=== PATIENT | female | born 1965 | race Caucasian/White ===

== ENCOUNTER → 2019-08-28 18:55 | Outpatient (CLI) | payer OTHER, SELFPAY ==
--- NOTE | 2019-08-28 | CYSPIN_PTH ---
PATIENT: JOAN AMBRIZ LOC: [facility] U#:[id number] AGE/SX: 60/F ROOM: RE08/28/[address]: Dr. Catie Maya MD : 1965 BED: DIS: SPEC #: [id number] RECD: 08/29/19 09:59 STATUS: NIA ADRIANA #: [id number] JONNY: 08/28/19 00:[address]: Catie Maya DEPT: CYTOLOGY RECD BY: Norman Vital ENTERED: 08/29/19 09:59 SP TYPE: CYSPIN FL OT DR: JHON Johnson Tissues: Urine Procedures: Pap Stain (control) Special Stain Group II Cytospin Fluid HEADER OPERATION: Not noted PRE-OP DIAGNOSIS: Gross hematuria TISSUE SUBMITTED: Urine for cytology DIAGNOSIS CYTOLOGY Urine for cytology (cytospin): Negative for malignant cells. Organisms consistent with bacteria are also noted. SJ:fam 08/29/19 CYTOLOGY STUDY Slides are reviewed. CYTOLOGY GROSS Received is 5 ml of clear yellow fluid labeled with the patient's name and and designated per the requisition as urine. Submitted for cytology preparation. / fam 08/29/19 TC:5 CPT: 98933
[2019-08-28 18:56] LABS: Cytology, Body Fluid / CSF SEE PATHOLOGY REPORT
== END ==
PROVIDERS: PCP Physician Assistant; Referring Provider Urology; Visit Provider Urology
DX: R31.0 Gross hematuria (principal)
CPT/HCPCS: 88108; 88313

== ENCOUNTER → 2019-09-03 | Outpatient (CLI) | payer OTHER, SELFPAY ==
[2019-09-03 10:13] VITALS: BMI 22.6
--- NOTE | 2019-09-03 10:45 | EMB_PTH ---
PATIENT: JOAN AMBRIZ [facility] U#:[id number] AGE/SX: 54/F ROOM: RE09/03/[address]: YOGESH Almonte : 1965 BED: DIS: 09/03/2019 SPEC #: [id number] RECD: 09/03/19 16:44 STATUS: NIA ADRIANA #: [id number] JONNY: 09/03/19 10:[address]: Susanna Fregoso NP DEPT: SURGICAL PATHOLOGY RECD BY: Norman Vital ENTERED: 09/04/19 07:00 SP TYPE: ENDOM BX/C ANA MARIA DR: JHON Johnson Tissues: Endometrium, NOS Procedures: Surgery Specimen Level IV HEADER OPERATION: Endometrial biopsy PRE-OP DIAGNOSIS: Abnormal uterine bleeding TISSUE SUBMITTED: Endometrial lining MICROSCOPIC DIAGNOSIS Endometrial biopsy: Superficial fragments of benign endometrial tissue and mucous. Fragments of benign endocervical epithelium. See comment. PATRICE:fam 09/05/19 COMMENT Endometrial glands are not identified for further evaluation. The findings may represent atrophic endometrium. Correlation with clinical findings and appropriate follow up are necessary. MICROSCOPIC DESCRIPTION Slides are reviewed. GROSS DESCRIPTION Received is one container labeled with the patient's name and not further designated. The specimen consists of multiple minute fragments of mera tissue that in aggregate measure 1 x 0.5 x <0.1 cm. The specimen is totally submitted in one cassette. / AM:fam 09/04/19 TC:4 CPT: 86364
[2019-09-09 16:11] LABS: HPV APTIMA, High Risk Positive (Negative)
== END | disposition home or self-care (01) ==
LOC: LABSPEC 16:53
PROVIDERS: PCP Physician Assistant; Referring Provider Nurse Practitioner Women's Health; Visit Provider Nurse Practitioner Women's Health
DX: Z12.4 Encounter for screening for malignant neoplasm of cervix (principal)
CPT/HCPCS: 87624; 88175; 88305; G0145

== ENCOUNTER → 2019-09-03 | Outpatient (CLI) | payer OTHER, SELFPAY ==
[2019-09-03 10:13] VITALS: BMI 22.6
== END | disposition home or self-care (01) ==
LOC: LABSPEC 09-04 07:29
PROVIDERS: PCP Physician Assistant; Referring Provider Nurse Practitioner Women's Health; Visit Provider Nurse Practitioner Women's Health
DX: N93.9 Abnormal uterine and vaginal bleeding, unspecified (principal)

== ENCOUNTER → 2019-09-04 14:39 | Outpatient (CLI) | payer OTHER, SELFPAY ==
[2019-09-03 10:13] VITALS: BMI 22.6
--- NOTE | 2019-09-04 14:42 | US_ITS ---
STUDY: ULTRASOUND TRANSVAGINAL CLINICAL: Female, 54 years old. Postmenopausal bleeding. TECHNIQUE: Transvaginal COMPARISON: None. FINDINGS: Normal uterine size measuring 5.7 x 3.9 x 2.6 cm in maximal craniocaudal dimension. There are no myometrial masses. Normal endometrial thickness measuring 2.2 mm. There are no endometrial masses. There is a small amount of fluid in the endometrial cavity. Normal uterine cervix. Ovaries are not visualized. There is no free fluid in the pelvis. Polycystic ovary disease: No. US/Transvaginal Non- IMPRESSION: Trace amount of fluid in the endometrial cavity, otherwise negative exam. Electronically Signed: Tray Adamson MD at 16:09 EDT , Service support ,
== END ==
PROVIDERS: PCP Physician Assistant; Referring Provider Urology; Visit Provider Urology
DX: N95.0 Postmenopausal bleeding (principal)
CPT/HCPCS: 76830

== ENCOUNTER → 2023-12-13 | Outpatient (CLI) | payer OTHER, SELFPAY ==
[2023-12-17 14:08] LABS: HPV APTIMA, High Risk Positive (Negative)
== END | disposition home or self-care (01) ==
LOC: LABSPEC 12:15
PROVIDERS: PCP Physician Assistant; Referring Provider Nurse Practitioner Family; Visit Provider Nurse Practitioner Family
DX: R87.610 Atypical squamous cells of undetermined significance on cytologic smear of cervix (ASC-US) (principal); Z12.4 Encounter for screening for malignant neoplasm of cervix
CPT/HCPCS: 87624; 88175; G0145

== ENCOUNTER → 2023-12-28 | Outpatient (CLI) | payer OTHER, SELFPAY ==
--- NOTE | 2023-12-28 14:10 | BI_ITS ---
MAMMOGRAPHY - BILATERAL SCREENING REASON FOR EXAM: Female, 58 years old. Routine annual screening examination. PERTINENT HISTORY: Non-contributory. Remote right excisional breast biopsy. TECHNIQUE: Digital bilateral breast re (3D mammographic acquisition) in the CC and MLO projections. 2-D mediolateral oblique (MLO) and craniocaudad (CC) views of both breasts were obtained. CAD: Full Field Digital Mammography with Computer Added Detection was performed. COMPARISON: None. Baseline examination. FINDINGS: Breast Composition: The breasts are extremely dense, which lowers the sensitivity of mammography. There are no dominant masses or suspicious calcifications. No other significant abnormalities are identified. BI/SCRN MAMM (CAD)W/RE BILAT IMPRESSION: Negative screening mammogram. Yearly followup mammogram recommended. (A) ASSESSMENT CATEGORY: BIRADS Category 1: Negative. A letter regarding these results will be sent to the patient by the facility within 30 days. Approximately 10% of breast cancers are not detected by mammography. A normal mammogram should not delay biopsy of a clinically suspicious abnormality. [id number] Electronically Signed: Ady Byers MD at 11:02 EDT ,
--- NOTE | 2023-12-28 14:35 | US_ITS ---
STUDY: THYROID ULTRASOUND REASON FOR EXAM: Female, 58 years old. Lump Right side TECHNIQUE: Ultrasound evaluation of the thyroid was performed with real-time and static ayala-scale imaging. COMPARISON: None. FINDINGS: RIGHT LOBE: The right lobe of the thyroid gland measures 4.9 x 1.5 x 1.6 cm. There is a homogeneous echotexture. Nodule 1:7 x 5 x 5 mm mixed cystic and solid isoechoic water than tall ill-defined margin nodule with no echogenic foci (TR/TE) in the lateral right lobe consistent with an adenoma. LEFT LOBE: The left lobe of the thyroid gland measures 4.1 x 1.7 x 1.1 cm. There is a homogeneous echotexture. Nodule 2:14 x 11 x 7 mm solid isoechoic water than tall ill-defined margin nodule with no echogenic foci (TR 3) in the anterior left lobe consistent with an adenoma. ISTHMUS: The isthmus measures 2 mm thick. . The regional lymph nodes are normal. US/Thyroid IMPRESSION: Multinodular thyroid gland. Electronically Signed: Supa García MD at 15:08 EDT ,
== END | disposition home or self-care (01) ==
PROVIDERS: PCP Physician Assistant; Referring Provider Nurse Practitioner Family; Visit Provider Nurse Practitioner Family
DX: Z12.31 Encounter for screening mammogram for malignant neoplasm of breast (principal); E04.1 Nontoxic single thyroid nodule
CPT/HCPCS: 76536; 77063; 77067

== ENCOUNTER → 2024-02-04 | Outpatient (CLI) | payer OTHER, SELFPAY ==
--- NOTE | 2024-02-04 | CER_PTH ---
PATIENT: JOAN AMBRIZ LOC: [facility] U#:[id number] AGE/SX: 58/F ROOM: RE02/04/[address]: Dr. Autumn Ba MD : 1965 BED: DIS: 02/04/2024 SPEC #: [id number] RECD: 02/04/24 17:55 STATUS: NIA WRIGHT #: [id number] JONNY: 02/04/24 00:[address]: Autumn Ba DEPT: SURGICAL PATHOLOGY RECD BY: Savannah Weeks ENTERED: 02/05/24 07:15 SP TYPE: CERV OTHR DR: JHON Johnson Tissues: Uterine cervix, NOS Procedures: Surgery Specimen Level IV HEADER OPERATION: Colposcopy PRE-OP DIAGNOSIS: ASCUS + TISSUE SUBMITTED: 6o'clock biopsy MICROSCOPIC DIAGNOSIS Cervix, 6o'clock, biopsy: A fragment of ectocervical epithelium with focal minimal changes suspicious for HPV cytopathic effects. Chronic inflammation. See comment. PATRICE/ 02/06/2024 COMMENT Immunohistochemistry ([id number]) for surrogate HPV marker (p16) supports the above diagnosis. MICROSCOPIC DESCRIPTION Slides are reviewed. GROSS DESCRIPTION Received in fixative is one container labeled with the patient's name and designated 6o'clock. The specimen consists of one irregular fragment of light mera soft tissue that measure 0.6 x 0.2 x 0.1 cm. The specimen is totally submitted in one cassette. 02/05/2024 TC:5 CPT:39886
--- NOTE | 2024-02-04 | IMM_PTH ---
PATIENT: JOAN AMBRIZ LOC: [facility] U#:[id number] AGE/SX: 58/F ROOM: RE02/04/[address]: Dr. Autumn Ba MD : 1965 BED: DIS: 02/04/2024 SPEC #: [id number] RECD: 02/06/24 10:39 STATUS: NIA REQ #: [id number] JONNY: 02/04/24 00:[address]: Autumn Ba DEPT: IMMUNOHISTOCHEMISTRY RECD BY: Barak Delgado ENTERED: 02/06/24 10:40 SP TYPE: IMMUNO OTHR DR: JHON Johnson Tissues: Uterine cervix, NOS Procedures: p16 (initial) KI-67 (add) PHYSICIAN & INSTITUTION [place] [id number] SPECIMEN INFORMATION: Tissue Source: 6o'clock biopsy Clinical Info: ASCUS+ Specimen Number: [id number] CPT code: 40655,68559 METHODOLOGY: Deparaffinized sections of prefer/formalin-fixed tissue or PAP/DQ stained slides are incubated with monoclonal/polyclonal antibodies/oligonucleotide probes. Localization is made via biotin free immunoperoxidase method. Appropriate controls are performed and reacted as expected. Results on target cell population are indicated in the following table: RESULTS: ANTIBODY / CLONE RESULT P16 (E6H4) negative Ki-67 (30-9) positive, basal layer only These tests were developed and their performance characteristics determined by [facility]. They may not have been cleared or approved by the U.[place]. Food and Drug Administration. The FDA has determined that such clearance or approval is not necessary. The above immunohistochemical/dualISH markers are ordered and reviewed by the Pathologist. INTERPRETATION: Cervix, 6o'clock, biopsy: Focal minimal changes suspicious for HPV cytopathic effects. PATRICE/ 02/07/2024
[2024-02-04 17:10] LABS: T4 Free Direct 0.93 ng/dL (0.76-1.46); Thyroid Stim Hormone (TSH) 1.83 uIU/mL (0.358-3.74)
[2024-02-06 04:07] LABS: Thyroid Peroxidase AB < 9 IU/mL (0-34)
== END | disposition home or self-care (01) ==
LOC: LAB 15:51
PROVIDERS: PCP Physician Assistant; Referring Provider Obstetrics & Gynecology; Visit Provider Obstetrics & Gynecology
DX: E04.1 Nontoxic single thyroid nodule (principal); R85.610 Atypical squamous cells of undetermined significance on cytologic smear of anus (ASC-US)
CPT/HCPCS: 36415; 84439; 84443; 84481; 86376; 88305; 88341; 88342

== ENCOUNTER → 2024-03-21 | Outpatient (CLI) | payer OTHER, SELFPAY | END | disposition home or self-care (01) | PROVIDERS: PCP Physician Assistant; Referring Provider Advanced Practice Midwife; Visit Provider Advanced Practice Midwife | DX: N89.8 Other specified noninflammatory disorders of vagina (principal); R10.2 Pelvic and perineal pain | CPT/HCPCS: 87070; 87205 ==

== ENCOUNTER → 2024-07-01 | Outpatient (CLI) | payer OTHER, SELFPAY ==
--- NOTE | 2024-07-01 11:41 | US_ITS ---
INDICATION: re-evaluation EXAMINATION: Ultrasound US Thyroid (eg thyroid, parathyroid, parotid) TECHNIQUE: Rojas scale and color doppler imaging was performed of the thyroid gland. COMPARISON: Prior study dated: 12/28/2023 FINDINGS: RIGHT THYROID LOBE: 4.6 x 1.7 x 1.5 cm, volume 6 mL. Previously 4.9 x 1.5 x 1.6 cm. Parenchyma: The gland echotexture is homogenous. Thyroid vascularity is normal. LEFT THYROID LOBE: 4.5 x 1.8 x 1.3 cm, volume 5.6 mL. Previously 4.1 x 1.7 x 1.1 cm. Parenchyma: The gland echotexture is homogenous. Thyroid vascularity is normal. ISTHMUS: 0.2 cm in maximum AP dimension. Previously 0.2 cm. Estimated total number of nodules greater than equal to 1 cm: 1. [employer] nodules are described as follows: 1. Location: Right mid Size: 0.8 x 0.4 x 0.6 cm. Previously: 0.7 x 0.5 x 0.5 cm. Nodule characteristics: Composition: Mixed cystic and solid (1). Echogenicity: Isoechoic (1). Shape: Wider than tall (0). Margins: Smooth (0). Echogenic Foci: None (0). ACR TI-RADS total points: 2. Previous 2. ACR TI-RADS category: 2. Previous 2 2. Location: Left mid Size: 1.3 x 1.1 x 0.8 cm. Previously: 1.4 x 1.1 x 0.7 cm. Nodule characteristics: Composition: Solid or almost completely solid (2). Echogenicity: Isoechoic (1). Shape: Wider than tall (0). Margins: Smooth (0). Echogenic Foci: None (0). ACR TI-RADS total points: 3. Previous 3. ACR TI-RADS category: 3. Previous 3 LYMPH NODES: No lymphadenopathy is seen in the tissue surrounding the thyroid gland. US/Thyroid IMPRESSION: No significant change in appearance of bilateral thyroid nodules. Based on size and appearance, no specific follow-up is recommended. ACR TI-RADS RECOMMENDATION REFERENCE: Ultrasound-guided fine-needle aspiration, follow-up ultrasound, no further follow-up. *TR 1 (0 points) and TR 2 (2 points): No FNA or follow-up. *TR 3 (3 points): FNA if more than or equal to 2.5 cm in maximum dimension. Follow-up ultrasound in 1, 3, and 5 years if 1.5 to 2.4 cm in maximum dimension. *TR 4 (4-6 points): FNA if more than or equal to 1.5 cm in maximum dimension. Follow-up ultrasound in 1, 2, 3, and 5 years if 1 to 1.4 cm in maximum dimension. *TR 5 (more than or equal to 7 points): FNA if more than or equal to 1 cm in maximum dimension. Follow-up ultrasound every year for 5 years if 0.5 to 0.9 cm in maximum dimension. *TR 3, TR 4, or TR 5 nodules that are below the size threshold for follow-up receive no follow-up. Electronically Signed: Nakul Hamilton MD at 23:56 EST ,
== END | disposition home or self-care (01) ==
LOC: US 11:39
PROVIDERS: PCP Physician Assistant; Referring Provider Nurse Practitioner Family; Visit Provider Nurse Practitioner Family
DX: E04.1 Nontoxic single thyroid nodule (principal)
CPT/HCPCS: 76536

== ENCOUNTER → 2025-03-16 | Outpatient (CLI) | payer OTHER, SELFPAY ==
--- NOTE | 2025-03-16 10:00 | BI_ITS ---
EXAM: SCRN MAMM (CAD)W/RE BILAT DATE: 03/16/2025 CLINICAL HISTORY: F, Age 59 y/o , SCREEN FOR BREAST CANCER No family history. History of prior right excisional breast biopsy. TECHNIQUE: Procedure Code: [id number] Modality: MG Procedure: SCRN MAMM (CAD)W/RE BILAT COMPARISON: Prior exam(s) dated December 28, 2023.. FINDINGS: TISSUE DENSITY: The breasts are extremely dense, which lowers the sensitivity of mammography. Bilateral Breast Mammographic Findings: No significant masses, calcifications or other abnormalities are identified. No suspicious masses, areas of developing architectural distortion, or suspicious calcifications. There has been no significant interval change. BI/SCRN MAMM (CAD)W/RE BILAT IMPRESSION: Stable bilateral screening mammogram. OVERALL FINAL ASSESSMENT BI-RADS 1: NEGATIVE. RECOMMENDATION: Routine annual follow-up in 1 Year Additional Recommendation none A letter with findings and recommendations will be mailed to the patient. Reading Location: [place] [address]
--- OUTSIDE RECORDS SUMMARY | 2025-03-16 10:17 | XMS RPT_ITS | CCD ---
Author Organization [facility] Care Team Providers Care Supervisor [employer] Name Role Phone ED, DR ROBERT Jackson Admitting Unavaila ble FABBY GUZMAN Consulting Unavailable ED, DR ROBERT Jackson Attending Unavaila ble ED, DR ROBERT Jackson Primary Care Unavaila ble PROVIDER, UNKNOWN Consulting Unavailable ED, DR ROBERT Jackson Primary Care Unavaila ble ED, DR ROBERT Jackson Admitting Unavaila ble GUZMAN, FABBY Hilliard Consulting Unavailable ED, DR ROBERT Jackson Attending Unavaila ble PROVIDER, UNKNOWN Consulting Unavailable Thomas GREENE, Fabby Hilliard Unavailable Thomas GREENE, Fabby Hilliard Unavailable Cleveland CABALLERO, Dr. Ballard Unavailable Zulma CABALLERO, Dr. Haddad Unavailable Jaden CABALLERO, Carina Jackson Unavailable Kenya Baker PA-C Unavailable Gil Villanueva PA-C Unavailable Eric PATEL, Ta Unavailable Unavailable Chidi PINTO, Alyx Unavailable [phone] Vidhya Jennings Unavailable Harinder BUCHANANN, Carina Guzmán Unavailable Unavailab evan Burgos LPN, Harmony Unavailable Unavailabl ana paula Brito WEAVING PROFESSOR, Poly Unavailable Unavailable Unavailable Unavailable Elsi Mcpherson Unavailable Unavailable Unavailable Unavailable Fabby Brock Referring Unavailable Suzanne Chairez Attending Unavailable Fabby Brock Primary Care Unavailable Suzanne Chairez Attending Unavailable Suzanne Chairez Referring Unavailable Fabby Brock Primary Care Unavailable Kanchan Francois Attending Unavailable Kanchan Francois Referring Unavailable Fabby Brock Primary Care Unavailable Autumn Ba Attending Unavailable Autumn Ba Referring Unavailable Fabby Brock Primary Care Unavailable Medications Current Medications Medication Drug Class(es) Dates Sig (Normalized) Sig (Original) Azithromycin (7 sources) Macrolide Antimicrobial Start: 06-05-2024 Zithromax Z-Ag 250 mg tablet ; 2 (two) Tablet today and then 1 tablet daily x 4 days for 0 days Quantity: 1 {Tablet} Refills: 0 Ordered: 05-Jun-2024 RAMONA Guzman Start: 05-Jun-2024 Start: 04-23-2017 End: 05-12-2017 Zithromax Z-Ag 250 MG Oral Tablet ; 2 (two) Tablet today and then 1 tablet daily x 4 days for 0 days Quantity: 1 {Package} Refills: 0 Ordered: 12-May-2017 RAMONA Baker Start: 23-Apr-2017 End: 12-May-2017 Status: Inactive Completed/Discontinued Medications Medication Drug Class(es) Dates Sig (Normalized) Sig (Original) [id number] 200 actuat albuterol 0.09 mg/actuat metered dose inhaler (7 sources) beta2-Adrenergic Agonist Start: 04-23-2017 End: 04-26-2018 take 2 puff(s) by inhalation every four to six hours as needed Ventolin HFA 108 (90 Base) MCG/ACT Inhalation Aerosol Solution ; 2 (two) puffs every 4-6 hours as needed for 0 days Quantity: 1 {Inhaler} Refills: 0 Ordered: 26-Apr-2018 AMANDA Burgos Start: 23-Apr-2017 End: 26-Apr-2018 Status: Inactive Comments: Medication taken as needed. Comment on above: Medication taken as needed. amoxicillin 500 mg oral capsule (7 sources) Penicillin-class Antibacterial Start: 08-23-2010 End: 09-02-2010 take 1 capsule by mouth three times daily AMOXICILLIN, 500MG (Oral Capsule) ; 1 Capsule three times daily for 10 days Quantity: 30 {Capsule} Refills: 0 Ordered: 23-Aug-2010 MD Carina Stanley Start: 23-Aug-2010 End: 02-Sep-2010 Status: Inactive Comments: fill if needed Comment on above: fill if needed amoxicillin 875 mg / clavulanate 125 mg oral tablet (7 sources) Penicillin-class Antibacterial Start: 04-26-2018 End: 05-06-2018 take 1 tablet by mouth twice daily at mealtime Augmentin 875-125 MG Oral Tablet ; 1 Tab two times daily for 10 days Quantity: 20 {Tablet} Refills: 0 Ordered: 26-Apr-2018 RAMONA Guzman Start: 26-Apr-2018 End: 06-May-2018 Status: Inactive Comments: Take with food Comment on above: Take with food sulfamethoxazole 800 mg / trimethoprim 160 mg oral tablet (7 sources) Dihydrofolate Reductase Inhibitor Antibacterial, Sulfonamide Antimicrobial Start: 08-18-2019 End: 08-23-2019 take 1 tablet by mouth twice daily Bactrim DS 800-160 MG Oral Tablet ; 1 (one) Tablet BID for 5 days Quantity: 10 {Tablet} Refills: 0 Ordered: 18-Aug-2019 RAMONA Guzman Start: 18-Aug-2019 End: 23-Aug-2019 Status: Inactive Problems Active Problems Problem Classification Problem Date Documented Date Episodic/Chronic Administrative/social admission (14 sources) Issue of repeat prescriptions 05-12-2017 Episodic Chronic obstructive pulmonary disease and bronchiectasis (20 sources) Bronchitis; Translations: [Bronchitis, not specified as acute or chronic] 03-14-2019 Episodic Disorders of lipid metabolism (20 sources) Hyperlipidemia; Translations: [Hyperlipidemia, unspecified] 09-18-2022 Chronic E Codes: Natural/environment (14 sources) Tick bite; Translations: [Bitten or stung by nonvenomous insect and other nonvenomous arthropods, initial encounter] 09-19-2022 Episodic Genitourinary symptoms and ill-defined conditions (20 sources) Urinary symptoms ; Translations: [Unspecified symptoms and signs involving the genitourinary system] 09-18-2022 Episodic Immunizations and screening for infectious disease (14 sources) Requires diphtheria, tetanus and pertussis vaccination; Translations: [Encounter for immunization] 08-13-2014 Episodic Menopausal disorders (14 sources) Perimenopausal state; Translations: [Menopausal and female climacteric states] 09-18-2022 Chronic Menstrual disorders (20 sources) Menometrorrhagia; Translations: [Excessive and frequent menstruation with irregular cycle] 09-18-2022 Chronic Nonmalignant breast conditions (7 sources) Pain of breast; Translations: [Mastodynia] 08-19-2012 Episodic Other lower respiratory disease (4 sources) Cough; Translations: [Cough] 06-05-2024 Episodic Other screening for suspected conditions (not mental disorders or infectious disease) (20 sources) Screening status; Translations: [Encounter for screening for malignant neoplasm of colon] Onset: 03-12-2025 03-14-2019 Episodic Other skin disorders (14 sources) Lesion of skin of face; Translations: [Disorder of the skin and subcutaneous tissue, unspecified] 03-14-2019 Episodic Other skin disorders (14 sources) Skin lesion; Translations: [Disorder of the skin and subcutaneous tissue, unspecified] 09-18-2022 Episodic Other upper respiratory infections (20 sources) Pharyngitis; Translations: [Acute pharyngitis, unspecified] 03-14-2019 Episodic Spondylosis; intervertebral disc disorders; other back problems (14 sources) Low back pain; Translations: [Lumbago] 04-15-2010 Episodic Sprains and strains (7 sources) Sprains and strains of other specified sites of shoulder and upper arm 08-19-2012 Episodic Thyroid disorders (1 source) Nontoxic single thyroid nodule; Translations: [Nontoxic single thyroid nodule] Onset: 07-25-2024 Chronic Unclassified (7 sources) deliveries 08-18-2019 Comment on above: 1. for breech Unclassified (7 sources) Number of Children 08-18-2019 Comment on above: 1. Unclassified (7 sources) Number of Pregnancies 08-18-2019 Comment on above: 1. Unclassified (7 sources) Well Adult, female - The patient feels well with minor complaints (has a burning sensation over her left ovary, intermittent, at times is a side ache; may relate to her menstrual cycle), has good energy level and is sleeping well. The first day of the last menstrual period was : (07/07/14). The patient has a balanced diet and takes no supplemental vitamins & iron. The patient exercises none (nothing right now, is much more active in the summer months). 08-13-2014 Past or Other Problems Problem Classification Problem Date Documented Date Episodic/Chronic Abdominal pain (15 sources) Right lower quadrant pain; Translations: [Right lower quadrant pain] Onset: 03-21-2024 08-18-2019 Episodic Other female genital disorders (1 source) Other specified noninflammatory disorders of vagina; Translations: [Other specified noninflammatory disorders of vagina] Onset: 04-14-2024 Episodic Unclassified (7 sources) tick bite - Acquired tick bite Sunday while picking up sticks in [place] around lunch. Noticed tick at 10pm during shower on lower left side of stomach. Area red. 09-19-2022 Unclassified (7 sources) Skin lesion - The skin lesion appeared gradually and has been occurring for 10 months. It has been unchanging in size. The lesion is characterized as raised above the skin. The lesion is located on the neck. Note for "Skin lesion": Has been itchy in the past several months. 08-22-2021 Unclassified (7 sources) UTI - Symptoms include dysuria, urinary frequency, urinary urgency, hematuria and back pain. The pain is located in the back (just a little but she did work outside yesterday). There is no radiation. Onset was sudden hour(s) ago (this am). The symptoms occur constantly. The patient describes this as moderate in severity and worsening. Associated symptoms do not include fever, chills, nausea or vomiting. Note for "UTI": No vaginal bleeding x >1 year. 08-18-2019 Unclassified (7 sources) Abdominal pain - The onset of the abdominal pain has been gradual and has been occurring in a persistent pattern for 5 days. The course has been constant. The pain is described as a moderate cramping. The pain is located in the right lower quadrant and does not radiate. The symptoms are aggravated by coughing, standing, walking and motion (touching hurts it.). There has been no associated heartburn. Note for "Abdominal pain": Constant pain - less severe if just sitting. Worse with movement. No period- has been over a year; has been a while since last pap, normal BM, no dysuria. Did have some urinary frequency on Sunday morning but none since. No nausea or fever. Has gallbladder and appendix. Normal appetite.No lump.No trigger prior to episode - such as heavy lifting, moving, etc.No treatment attempted. 07-23-2019 Unclassified (7 sources) Sore throat - The onset of the sore throat has been acute and has been occurring in a persistent pattern for 3 days. The sore throat is described as mild. Symptoms include sore throat (a couple of days ago but not now), but do not include fever, headache, runny nose, nasal congestion, cough or ear pain. There are no relieving factors. Note for "Sore throat": Pt was at the dentist office 2 days ago and was alerted that her throat seemed unusually red and has small white spots. Her throat does not hurt at this time. Thinks there may be some new spots that have appeared since her appt. Doesn't use chewing tobacco and hasn't been around anyone who has been sick. 03-14-2019 Unclassified (7 sources) Cold Symptoms - Symptoms include runny nose and dry cough, but do not include nasal congestion, ear pain, ear fullness, sore throat, wheezing, fever, chills, general malaise, headache or facial pain. The onset was gradual 1 week(s) ago. The symptoms occur constantly. The patient describes this as moderate in severity and worsening. Current treatment includes non-prescription cold medication and mucinex. The patient has not been exposed to an individual with similar symptoms. Medical history includes seasonal allergies, but patient denies history of recurrent sinusitis, recurrent strep pharyngitis, asthma, tonsillectomy or recurrent ear infections. Note for Upper respiratory infection": Same thing one year ago that progressed quickly and she is going out of state in 2 weeks. 04-26-2018 Unclassified (7 sources) Cough - The onset of the cough has been gradual and has been occurring in a persistent pattern for 3 months. The course has been constant. The cough is characterized as dry (chest feels heavy and she feels like there is stuff in there but can't get it out). The cough occurs all the time. There is no fever, headache, runny nose or sore throat. Note for "Cough": Has been taking robutussin and jasmin seltzer without improvement.Initially had cold symptoms but those improved - cough/chest symptoms persisted. 04-23-2017 Unclassified (7 sources) breast pain - Patient notes for the last couple months her right breast has been sore/tender. It seems to be worse around her menstrual cycle. No palpable lump, no nipple drainage, no reddness or swelling. She has hx of having lump removed but was benign (right breast, 1984). Unsure if any family hx of breast cancer. LMP last week. Tender to touch today but no other current pain. Has some upper back discomfort (?tension). Does not drink much caffeine (occ iced tea). No new bras; no longer wears underwires (got rid of them a few months ago when had similar sx). 08-19-2012 Unclassified (7 sources) Well adult female - The patient feels well with minor complaints. The first day of the last menstrual period was : (08/25-08/31). 09-09-2010 Unclassified (7 sources) Cold Symptoms - Symptoms include nasal congestion, non-purulent sputum, sore throat, general malaise, headache and facial pain, but do not include productive cough or fever. The onset was sudden 5 day(s) ago. The patient describes this as worsening. Current treatment includes non-prescription cold medication. The patient has been exposed to an individual with an upper respiratory infection. Note for "Cold Symptoms": plans to go to [facility] later in week and wants to feel better before she leaves 08-23-2010 Unclassified (7 sources) Back pain - The onset of the pain has been variable and has been occurring in a persistent pattern for months. The course has been constant. The pain is characterized as a dull ache and shooting (Into bilateral legs causing an achiness, no muscle spasm). The pain is located in the lower back (variable between sides day to day) and sacral area and radiates to the left groin (and hips intermittently). There are no precipitating factors. The symptoms are aggravated by menses and are relieved by rest and stretching (changing positions helps, has also tried ibuprofen). 04-16-2010 Unclassified (2 sources) Cold Symptoms - Symptoms include hoarseness and dry cough (feels heavy in chest unable to cough anything up), but do not include sneezing, nasal congestion, runny nose, non-purulent sputum, purulent discharge, ear pain, ear fullness, sore throat, scratchy throat, productive cough, wheezing, fever, chills, general malaise, headache or facial pain. The onset was gradual (pt states had a cold end of March was better but still has cough) 1 month(s) ago. The symptoms occur intermittently. The patient describes this as moderate in severity and worsening (especially in morning). The patient is not currently being treated for this problem. Risk factors do not include smoking. Patient denies history of seasonal allergies or asthma. Note for Upper respiratory infection": Chest congestion. 06-05-2024 Results Test Name Value Interpretation Reference Range Facility Thyroidon 07-01-2024 Thyroid [facility] Services [address] [place] [address] Thyroid MR#: [id number] Acct: [id number] Name: JOAN AMBRIZ Rep #: [id number] : 1965 F 59 From: Nakul martinez MD PCP: JHON Johnson Status: REG CLI Study: Thyroid Date of Exam: 07/01/24 Exam# [id number] Ordering Dr: Kanchan Francois LACING CUTTER-C [id number] INDICATION: re-evaluation EXAMINATION: Ultrasound US Thyroid (eg thyroid, parathyroid, parotid) TECHNIQUE: Rojas scale and color doppler imaging was performed of the thyroid gland. COMPARISON: Prior study dated: 12/28/2023 ____ FINDINGS: RIGHT THYROID LOBE: 4.6 x 1.7 x 1.5 cm, volume 6 mL. Previously 4.9 x 1.5 x 1.6 cm. Parenchyma: The gland echotexture is homogenous. Thyroid vascularity is normal. LEFT THYROID LOBE: 4.5 x 1.8 x 1.3 cm, volume 5.6 mL. Previously 4.1 x 1.7 x 1.1 cm. Parenchyma: The gland echotexture is homogenous. Thyroid vascularity is normal. ISTHMUS: 0.2 cm in maximum AP dimension. Previously 0.2 cm. Estimated total number of nodules greater than equal to 1 cm: 1. Supervisor Plate Pasting nodules are described as follows: 1. Location: Right mid Size: 0.8 x 0.4 x 0.6 cm. Previously: 0.7 x 0.5 x 0.5 cm. Nodule characteristics: Composition: Mixed cystic and solid (1). Echogenicity: Isoechoic (1). Shape: Wider than tall (0). Margins: Smooth (0). Echogenic Foci: None (0). ACR TI-RADS total points: 2. Previous 2. ACR TI-RADS category: 2. Previous 2 2. Location: Left mid Size: 1.3 x 1.1 x 0.8 cm. Previously: 1.4 x 1.1 x 0.7 cm. Nodule characteristics: Composition: Solid or almost completely solid (2). Echogenicity: Isoechoic (1). Shape: Wider than tall (0). Margins: Smooth (0). Echogenic Foci: None (0). ACR TI-RADS total points: 3. Previous 3. ACR TI-RADS category: 3. Previous 3 LYMPH NODES: No lymphadenopathy is seen in the tissue surrounding the thyroid gland. US/Thyroid IMPRESSION: No significant change in appearance of bilateral thyroid nodules. Based on size and appearance, no specific follow-up is recommended. ACR TI-RADS RECOMMENDATION REFERENCE: Ultrasound-guided fine-needle aspiration, follow-up ultrasound, no further follow-up. *TR 1 (0 points) and TR 2 (2 points): No FNA or follow-up. *TR 3 (3 points): FNA if more than or equal to 2.5 cm in maximum dimension. Follow-up ultrasound in 1, 3, and 5 years if 1.5 to 2.4 cm in maximum dimension. *TR 4 (4-6 points): FNA if more than or equal to 1.5 cm in maximum dimension. Follow-up ultrasound in 1, 2, 3, and 5 years if 1 to 1.4 cm in maximum dimension. *TR 5 (more than or equal to 7 points): FNA if more than or equal to 1 cm in maximum dimension. Follow-up ultrasound every year for 5 years if 0.5 to 0.9 cm in maximum dimension. *TR 3, TR 4, or TR 5 nodules that are below the size threshold for follow-up receive no follow-up. Electronically Signed: Nakul Hamilton MD at 23:56 EST , CC: YOGESH Francois; JHON Johnson Nicker And Breaker: Signed Normal [facility] Genital Culture Comprehensiv aimee 03-25-2024 VAC Reason for Exam: vaginal discharge Normal vaginal laila isolated. No yeast, Gardnerella, Neisseria or beta-hemolytic Streptococcus isolated. Normal [facility] Comment on above: Performed By: #### M 100.1999, M100.3200 #### [facility] [address] [place], [address] Gram Stainon 03-22-2024 GS Reason for Exam: vaginal discharge Gram Stain 3+ Gram positive rods 1+ White Blood Cells No Gram negative diplococci Normal [facility] Comment on above: Performed By: #### M 100.1999, M100.3200 #### [facility] [address] [place], [place], [id number] [employer] Office Visit Reporton 03-21-2024 [employer] Office Visit Report [facility] [address], [address] [place] [address] OFFICE VISIT Date of Service: 03/21/24 MR#: [id number] Acct: [id number] Name: JOAN AMBRIZ Rep #: [id number] : 1965 Provider: BLAISE Floyd ams Age/Sex: 58/F [place] [facility] [place]: [place] Intake Vital Signs 02/04/24 15:27 03/21/24 15:14 03/21/24 15:20 Height 5 ft 8 in 5 ft 8 in 5 ft 8 in Weight: 147 lb BMI 22.3 BP 132/69 H Intake Visit Reasons: discharge, back pain following colposcopy Associate Veterinarian Required: No Is patient in pain?: Yes (back pain on and off) Allergies No Known Allergies Allergy (Verified 03/21/24 15:20) Medications ???Medication ???Instructions ???Recorded ???Confirmed ???Type multivitamin 1 tab PO DAILY 12/13/23 03/21/24 History metronidazole 500 mg tablet 500 mg PO BID #14 tabs 03/21/24 03/21/24 Rx Patient : No : No PFSH Surgical History S/P breast lumpectomy deliv due to previous difficult deliv, deliv, curr hospitaliz Family History Father Cancer Heart disease Mother Heart disease Social History number of children: 1 current occupational status: employed current occupation: [employer] Smoking Status: Former smoker alcohol intake: current alcohol intake frequency: a few times a week Alcohol type: wine substance use type: does not use frequency: 1-2 times per week seatbelt use: always do you feel safe at home: Yes additional social history: - [employer] ([employer]) HPI discharge, back pain following colposcopy Details: JOAN AMBRIZ is a 58 year old who presents for vaginal discharge and odor since colposcopy in jan. Has to wear panty liner for discharge and reports musty smell. Denies pain, irritation or itching. Denies UTI sx. History 1 Elective abortions Hx Para 1 Spontaneous abortions Hx # Term Pregnancies 1 Ectopic pregnancies Hx # Pregnancies Multiple births # of living children 1 Past Pregnancies Del. Date Name GA/Weeks Outcome Route Bth Weight Gen Labor Lgth Anesthesia Del Locatn Provider FOB Unknown Fiordaliza 1989 ROS Const Constitutional: Reports system reviewed and no additional complaints, except as documented Cardio Card: Reports system reviewed and no additional complaints, except as documented Resp Resp: Reports system reviewed and no additional complaints, except as documented GI GI: Reports system reviewed and no additional complaints, except as documented : Reports system reviewed and no additional complaints, except as documented; Denies difficulty voiding, dysuria or urinary frequency Skin Skin/Breast: Reports system reviewed and no additional complaints, except as documented Neuro Neuro: Reports system reviewed and no additional complaints, except as documented Psych Psych: Reports system reviewed and no additional complaints, except as documented Exam Const General: cooperative, healthy appearing, comfortable and no acute distress Resp Effort Inspection: normal respiratory effort, able to speak in complete sentences and symmetric chest movement GI Inspection: normal to inspection Palpation: soft External Female Exam: normal external appearance and normal appearance of the urethra Urethra: normal appearance of the urethra Speculum Exam - Vagina: normal appearance of the vagina and normal vaginal discharge Speculum Exam - Cervix: normal appearance of the cervix and nontender Bimanual Exam- Vagina Uterus: normal bimanual exam, normal palpation, uterine size normal, No tender and non-tender Bimanual Exam- Adnexa, other: normal Pelvic Support: normal Neuro General: patient alert, patient awake and patient oriented x3 Cognition: normal cognition Speech: speech normal Gait: normal gait Psych Appearance: grossly normal and well kempt Mental Status: mental status grossly normal Affect: normal affect Speech and Movement: speech and movement normal Attitude: cooperative Thought Process: normal Thought Content: normal Judgment: judgment good Coding Level of Care Code Off vis,est,level 3 Diagnoses Vaginal discharge N89.8 Assessment and Plan Assessment and Plan (1) Vaginal discharge: Status: Acute Plan: metronidazole sent Genital culture RTO prn/annual Orders: Orders Culture, Genital Comprehensive Today N89.8 - Other specified noninflammatory disorders of vagina Culture, Urine Today R10.2 - Pelvic and perineal pain Medications: New metronidazole 500 mg PO BID 14 tabs 0RF 03/21/24 1537 Date ____ (more content not included)... Normal [facility] - Chemistry and C hemistry - challengeon 08-18-2019 Bilirubin Ql (U) Negative Normal [facility] [employer] [employer], [employer]. Ketones Ql (U) Negative Normal [facility] [employer], [employer]. pH (U) 6.0 [pH] Normal [employer], [employer]. Specific gravity (U) [Rel density] 1.015 Normal [employer], [employer]. Urobilinogen Qn (U) 0.2 mg/dL Normal [employer], [employer].; [employer], [employer]. Laboratory - Hematology and Cell countson 08-18-2019 Hemoglobin Ql (U) large Abnormal [employer].; [employer], [employer]. Laboratory - Specimen inform ationon 08-18-2019 Appearance (U) clear Normal [employer]. Color (U) yellow Normal [facility] [employer]. Laboratory - Urinalysison Glucose Test strip (U) [Mass/Vol] Negative Normal [facility] [employer].; [employer]. Leukocyte esterase Test strip Ql (U) trace Normal [facility] [employer].; [employer]. Nitrite Ql (U) Negative Normal [facility] [employer]. Protein Ql (U) Negative Normal [facility].; [employer]. No Panel Informationon 08-18 CULTURE, URINE, ROUTINE SEE NOTE Normal [place] [employer].; [employer]. Laboratory - Chemistry and C hemistry - challengeon 07-23-2019 Bilirubin Ql (U) Negative Normal [facility] [employer]. Ketones Ql (U) Negative Normal [facility].; [employer]. pH (U) 7.0 [pH] Normal [place] [facility].; [employer]. Specific gravity (U) [Rel density] 1.015 Normal [place] [facility].; [employer]. Urobilinogen Qn (U) 0.2 mg/dL Normal [facility] [employer]. Laboratory - Hematology and Cell countson 07-23-2019 Hemoglobin Ql (U) Negative Normal [place] [facility].; [employer]. Laboratory - Specimen inform ationon 07-23-2019 Appearance (U) clear Normal [facility] [employer]. Color (U) yellow Normal [place] [employer].; [employer]. Laboratory - Urinalysison Glucose Test strip (U) [Mass/Vol] Negative Normal [place] [facility].; [employer], [employer]. Leukocyte esterase Test strip Ql (U) trace Normal [facility].; [employer], [employer]. Nitrite Ql (U) Negative Normal [facility].; [employer]. Protein Ql (U) Negative Normal [facility]; [facility] Laboratory - Microbiology an d Antimicrobial susceptibilityon 03-14-2019 S. pyogenes Ag EIA Ql (Throat) Negative Normal [facility]; [facility] No Panel Informationon 03-14 MONOSPOT TEST (IN HOUSE) Negative Normal [facility]; [facility] Laboratory - Cytologyon 07-26 Microscopic observation Cyto stain Nom (Cvx) Normal [facility]; [facility] Laboratory - Chemistry and C hemistry - challengeon 07-08-2014 Albumin [Mass/Vol] 4.7 g/dL Normal 3.6 - 5.1 g/dL [facility]; [facility], [facility] Albumin/Globulin [Mass ratio] 1.4 {ratio} Normal 1.0 - 2.5 [facility]; [facility] ALP [Catalytic activity/Vol] 60 U/L Normal 33 - 130 U/L [facility]; [facility], [facility]. ALT [Catalytic activity/Vol] 9 U/L Normal 6 - 29 U/L [facility]; [facility], [facility]. AST [Catalytic activity/Vol] 16 U/L Normal 10 - 35 U/L [facility], [facility] Bilirubin [Mass/Vol] 0.5 mg/dL Normal 0.2 - 1 .2 mg/dL [facility]; [facility], [facility]. Calcium [Mass/Vol] 9.6 mg/dL Normal 8.6 - 10. 4 mg/dL [facility].; [facility], [facility]. Chloride [Moles/Vol] 100 mmol/L Normal 98 - 11 0 mmol/L [facility]; [facility], [facility]. Cholesterol [Mass/Vol] 247 mg/dL Abnormal 125 - 200 mg/dL [facility]; [facility], [facility] Cholesterol in HDL [Mass/Vol] 75 mg/dL Normal [facility]; [facility], [facility] Cholesterol in LDL [Mass/Vol] 155 mg/dL Abnormal [facility].; [facility], [facility]. Cholesterol non HDL [Mass/Vol] 172 mg/dL Abnormal [facility].; [facility], [facility]. Cholesterol.total/Chol esterol in HDL [Mass ratio] 3.3 {ratio} Normal [facility].; [facility], [facility] CO2 [Moles/Vol] 26 mmol/L Normal 19 - 30 mmol/L [facility], [facility].; [facility], [facility]. Creatinine [Mass/Vol] 0.85 mg/dL Normal 0.50 - 1.05 mg/dL [facility], [facility].; [facility], [facility]. GFR/1.73 sq M.predicted among blacks MDRD (S/P/Bld) [Vol rate/Area] 93 {ML/MIN/1.73M2} Normal [facility], [facility].; [facility], [facility]. GFR/1.73 sq M.predicted MDRD (S/P/Bld) [Vol rate/Area] 80 {ML/MIN/1.73M2} Normal [facility], [facility].; [facility], [facility]. Globulin (S) [Mass/Vol] 3.2 g/dL Normal 1.9 - 3.7 g/dL [facility], [facility].; [facility], [facility]. Glucose [Mass/Vol] 92 mg/dL Normal 65 - 99 mg/dL [facility].; [facility], [facility]. Potassium [Moles/Vol] 4.7 mmol/L Normal 3.5 - 5.3 mmol/L [facility], [facility].; [facility], [facility]. Protein [Mass/Vol] 7.9 g/dL Normal 6.1 - 8.1 g/dL [facility], [facility].; [facility], [facility]. Sodium [Moles/Vol] 136 mmol/L Normal 135 - 146 mmol/L [facility], [facility].; [facility], Inc. Triglyceride [Mass/Vol] 85 mg/dL Normal [facility], [facility].; [facility], [facility]. Urea nitrogen [Mass/Vol] 17 mg/dL Normal 7 - 25 mg/dL [facility], [facility].; [facility], Inc. Urea nitrogen/Creatinine [Mass ratio] 19.9 mg/mg Normal 6 - 22 [facility].; [employer]. Laboratory - Chemistry and C hemistry - challengeon 09-14-2010 Cholesterol [Mass/Vol] 218 mg/dL Abnormal 0 - 200 mg/dL [facility], [facility].; [employer]. Cholesterol in HDL [Mass/Vol] 65 mg/dL Abnormal 40 - 60 mg/dL [facility], [facility].; [employer]. Cholesterol in LDL [Mass/Vol] 137 mg/dL Abnormal 0 - 100 mg/dL [facility], [facility].; [employer], [employer]. Cholesterol in VLDL [Mass/Vol] 16 mg/dL Normal [facility].; [employer]. Glucose [Mass/Vol] 93 mg/dL Normal 70 - 110 mg/dL [facility].; [employer]. Triglyceride [Mass/Vol] 80 mg/dL Normal 0 - 150 mg/dL [facility].; [employer]. Laboratory - Cytologyon 08-23 Microscopic observation Cyto stain Nom (Cvx) SEE NOTE Normal [facility].; [employer]. Vital Signs Date Time Vital Sign Value Performing Clinician Facility 06-05-2024 13:46-0500 Body height 172.72 cm [facility], [facility]; [employer]. 06-05-2024 13:46-0500 Body mass index (BMI) [Ratio] 22.9 kg/m2 [facility]; [employer], [employer]. 06-05-2024 13:46-0500 Body surface area Derived from formula 1.81 m2 [facility], [facility].; [employer]. 06-05-2024 13:46-0500 Body temperature 98.6 [degF] [facility].; [employer]. Comment on above: Method: Tympanic 06-05-2024 13:46-0500 Body weight 68.31 kg [facility].; [employer]. 06-05-2024 13:46-0500 Diastolic blood pressure 83 mm[Hg] [facility], [employer].; [employer]. Comment on above: Patient Position: Sitting; Cuff Location : Left Arm; Cuff Size: Standard 06-05-2024 13:46-0500 Heart rate 78 /min [facility] KoreyH[facility], [employer].; [employer]. Comment on above: Pattern: Regular 06-05-2024 13:46-0500 Inhaled oxygen concentration 21 % [facility].; [employer]. Comment on above: Room air 06-05-2024 13:46-0500 SaO2% (BldA) [Mass fraction] 96 % [facility].; [employer]. 06-05-2024 13:46-0500 Systolic blood pressure 127 mm[Hg] ElsiCarson [facility] Cancer CenterZipments.; [employer]. Comment on above: Patient Position: Sitting; Cuff Location : Left Arm; Cuff Size: Standard 09-19-2022 08:05-0400 Body temperature 98.7 [degF] Ta Reyes WEAVING PROFESSOR [facility], [employer].; [employer]. 09-19-2022 08:05-0400 Body weight 69.4 kg Ta Reyes LPN [place] [employer] [facility], [employer].; [employer]. 09-19-2022 08:05-0400 Diastolic blood pressure 80 mm[Hg] Ta Reyes LPN [facility], [employer].; [employer]. Comment on above: Patient Position: Sitting; Cuff Location : Left Arm; Cuff Size: Standard 09-19-2022 08:05-0400 Heart rate 78 /min Ta Reyes LPN [facility], [employer].; [employer]. Comment on above: Pattern: Regular 09-19-2022 08:05-0400 Systolic blood pressure 149 mm[Hg] Ta Reyes LPN [facility], [employer].; [employer]. Comment on above: Patient Position: Sitting; Cuff Location : Left Arm; Cuff Size: Standard 08-22-2021 14:32-0500 Body height 172.72 cm Carina Pizano [facility], Inc.; [employer] [facility], [facility]. 08-22-2021 14:32-0500 Body mass index (BMI) [Ratio] 22.5 kg/m2 Carina Pizano [facility], Inc.; [employer] [facility], Inc[facility] 08-22-2021 14:32-0500 Body surface area Derived from formula 1.8 m2 Carina Paulinolabach [facility] [employer] [facility], Inc.; [employer] [facility], [facility]. 08-22-2021 14:32-0500 Body weight 67.13 kg Carina Pizano [facility] [employer] [facility], Inc.; [employer], [facility]. 08-22-2021 14:32-0500 Diastolic blood pressure 73 mm[Hg] Carina Pizano [facility] [employer] [facility], Inc.; [employer]. Comment on above: Patient Position: Sitting; Cuff Location : Left Arm; Cuff Size: Standard 08-22-2021 14:32-0500 Heart rate 71 /min Carina Pizano [facility] [employer] [facility], Inc.; [employer]. Comment on above: Pattern: Regular 08-22-2021 14:32-0500 Systolic blood pressure 124 mm[Hg] Carina Pizano WEAVING PROFESSOR [place] [employer] [facility], Inc.; [employer]. Comment on above: Patient Position: Sitting; Cuff Location : Left Arm; Cuff Size: Standard 08-18-2019 09:03-0500 Body height 172.72 cm Harmony Burgos LPN [place] [employer] [facility], Inc.; [employer]. 08-18-2019 09:03-0500 Body mass index (BMI) [Ratio] 22.81 kg/m2 Harmony Loretta WEAVING PROFESSOR [place] [employer] [facility], Inc.; [employer] 08-18-2019 09:03-0500 Body surface area Derived from formula 1.81 m2 Harmony Loretta WEAVING PROFESSOR [place] [employer] [facility], Inc.; [employer]. 08-18-2019 09:03-0500 Body temperature 98.6 [degF] Harmony Loretta PATEL [facility], Inc.; [employer]. Comment on above: Method: Tympanic 08-18-2019 09:03-0500 Body weight 68.04 kg [address] Loretta PATEL [facility], Inc.; [employer] 08-18-2019 09:03-0500 Diastolic blood pressure 81 mm[Hg] Harmony Burgos LPN [facility], Inc.; [employer] Comment on above: Patient Position: Sitting; Cuff Location : Left Arm; Cuff Size: Standard 08-18-2019 09:030500 Heart rate 79 /min Harmonyroger Burgos LPN [facility], [facility].; [employer] Comment on above: Pattern: Regular 08-18-2019 09:03-0500 Systolic blood pressure 133 mm[Hg] Harmony Burgos LPN [facility], Inc.; [employer] Comment on above: Patient Position: Sitting; Cuff Location : Left Arm; Cuff Size: Standard 07-23-2019 10:110500 Body height 172.72 cm Harm[address] Burgos LPN [facility], Inc.; [employer] 07-23-2019 10:11-0500 Body mass index (BMI) [Ratio] 22.2 kg/m2 Hamrony Burgos LPN [facility], Inc.; [place] [employer], [employer] 07-23-2019 10:110500 Body surface area Derived from formula 1.79 m2 Harmony Burgos LPN [facility], Inc.; [employer] 07-23-2019 10:110500 Body temperature 98.1 [degF] Harmony Burgos LPN [place] [employer] [facility], Inc.; [employer]. Comment on above: Method: Tympanic 07-23-2019 10:110500 Body weight 66.23 [address] Burgos LPN [facility], Inc.; [employer] 07-23-2019 10:110500 Diastolic blood pressure 81 mm[Hg] Harmony Espinosajaniya AMANDA [place] [employer], Inc.; [employer], [employer]. Comment on above: Patient Position: Sitting; Cuff Location : Left Arm; Cuff Size: Standard 07-23-2019 10:11-0500 Heart rate 97 /min Harmony Burgos WEAVING PROFESSOR [facility], Inc.; [employer] Comment on above: Pattern: Regular 07-23-2019 10:11-0500 Systolic blood pressure 129 mm[Hg] Harmony Burgos WEAVING PROFESSOR [place] [employer], [employer].; [employer] Comment on above: Patient Position: Sitting; Cuff Location : Left Arm; Cuff Size: Standard 03-14-2019 09:35-0400 Body height 172.72 cm Poly Rivasfreddie [facility] [employer] [facility], Inc.; [employer] Inc[employer] 03-14-2019 09:35-0400 Body mass index (BMI) [Ratio] 21.59 kg/m2 Poly Rivasfreddie [facility] [employer], Inc.; [employer] 03-14-2019 09:35-0400 Body surface area Derived from formula 1.77 m2 Poly Rivasfreddie [facility] [employer], Inc.; [employer], [employer] 03-14-2019 09:35-0400 Body temperature 98.1 [degF] Poly Rivasfreddie WEAVING PROFESSOR [place] [employer], [employer].; [employer], [employer] Comment on above: Method: Tympanic 03-14-2019 09:35-0400 Body weight 64.41 kg Poly Rivasfreddie WEAVING PROFESSOR [place] [employer], [employer].; [employer], [employer] 03-14-2019 09:35-0400 Diastolic blood pressure 70 mm[Hg] Poly Rivasugg WEAVING PROFESSOR [employer] Inc.; [employer], [employer]. Comment on above: Patient Position: Sitting; Cuff Location : Left Arm; Cuff Size: Standard 03-14-2019 09:35-0400 Heart rate 64 /min Poly Rivasfreddie WEAVING PROFESSOR [facility] [employer], [employer].; [employer], [employer]. Comment on above: Pattern: Regular 03-14-2019 09:35-0400 Systolic blood pressure 127 mm[Hg] Poly Zaugg [facility], Inc.; [employer]. Comment on above: Patient Position: Sitting; Cuff Location : Left Arm; Cuff Size: Standard 04-26-2018 08:06-0400 Body height 172.72 cm Harmony Wecher [facility], Inc.; [employer] 04-26-2018 08:06-0400 Body mass index (BMI) [Ratio] 21.44 kg/m2 Harmony Burgos [facility], Inc.; [employer] 04-26-2018 08:06-0400 Body surface area Derived from formula 1.76 m2 Harmony Valentinocher [facility], Inc.; [employer]. 04-26-2018 08:06-0400 Body temperature 97.5 [degF] Harmony Valentinocher [facility] [employer] [facility], Inc.; [employer] Comment on above: Method: Tympanic 04-26-2018 08:06-0400 Body weight 63.96 [address] [facility], [facility].; [employer] 04-26-2018 08:06-0400 Diastolic blood pressure 76 mm[Hg] Harmonyroger Burgos [facility] [employer] [facility], Inc.; [employer] Inc[employer] Comment on above: Patient Position: Sitting; Cuff Location : Left Arm; Cuff Size: Standard 04-26-2018 08:06-0400 Heart rate 84 /min Harmony Burgos LPN [facility], Inc.; [employer] Comment on above: Pattern: Regular 04-26-2018 08:06-0400 Inhaled oxygen concentration 21 % Harmony Burgos [facility] [employer] [facility], Inc.; [employer], [employer] Comment on above: Room air 04-26-2018 08:06-0400 SaO2% (BldA) [Mass fraction] 99 % Harmony Burgos LPN [place] [employer] [facility], Inc.; [employer] 04-26-2018 08:06-0400 Systolic blood pressure 119 mm[Hg] Harm[facility] [employer] [facility], Inc.; [employer]. Comment on above: Patient Position: Sitting; Cuff Location : Left Arm; Cuff Size: Standard 04-23-2017:040 Body height 172.72 cm Harmony Wecher PATEL [place] [employer] [facility], Inc.; [employer] 04-23-2017 09:-0400 Body mass index (BMI) [Ratio] 21.29 kg/m2 Harmony Loretta PATEL [place] [employer] [facility], Inc.; [employer] 04-23-2017: Body surface area Derived from formula 1.76 m2 Harmony Valentinocher [facility] [employer] [facility], Inc.; [employer]. 04-23-2017:040 Body temperature 98.3 [degF] Harmony Wecher [facility] [employer] [facility], Inc.; [employer], [employer]. Comment on above: Method: Tympanic 04-23-2017: Body weight 63.5 kg Harmonyroger Burgos LPN [place] [employer] [facility], Inc.; [employer] 04-23-2017 09:0400 Diastolic blood pressure 88 mm[Hg] Harmonyroger Burgos [facility], Inc[facility] [employer].; [employer]. Comment on above: Patient Position: Sitting; Cuff Location : Left Arm; Cuff Size: Standard 04-23-2017 09:0400 Heart rate 128 /min Harmony Burgos LPN [place] [employer] [facility], Inc.; [employer]. Comment on above: Pattern: Regular 04-23-2017 09:0400 Inhaled oxygen concentration 21 % Harmony Burgos LPN [place] [employer], [employer].; [employer], [employer]. Comment on above: Room air 04-23-2017:-0400 SaO2% (BldA) [Mass fraction] 99 % Harmony Burgos [facility] [employer] [facility], Inc.; [employer], [employer] 04-23-2017 09:-0400 Systolic blood pressure 114 mm[Hg] Haromny Burgos LPN [place] [employer] [facility], [employer]. Comment on above: Patient Position: Sitting; Cuff Location : Left Arm; Cuff Size: Standard 08-13-2014 13:42-0500 Body height 172.72 cm Alyx Murillo RN Work Phone: [employer].; [employer]. 08-13-2014 13:42-0500 Body mass index (BMI) [Ratio] 20.37 kg/m2 Alyx Murillo RN Work Phone: [employer].; [employer]. 08-13-2014 13:42-0500 Body surface area Derived from formula 1.72 m2 Alyx Murillo RN Work Phone: [employer].; [employer]. 08-13-2014 13:42-0500 Body weight 60.78 kg Alyx Murillo RN Work Phone: [employer].; [employer]. 08-13-2014 13:42-0500 Diastolic blood pressure 72 mm[Hg] Alyx Murillo RN Work Phone: [employer].; [employer]. Comment on above: Patient Position: Sitting; Cuff Location : Left Arm; Cuff Size: Standard 08-13-2014 13:42-0500 Heart rate 64 /min Alyx Murillo RN Work Phone: [employer].; [employer]. Comment on above: Pattern: Regular 08-13-2014 13:42-0500 Systolic blood pressure 124 mm[Hg] Alyx Murillo RN Work Phone: [employer].; [employer]. Comment on above: Patient Position: Sitting; Cuff Location : Left Arm; Cuff Size: Standard 08-19-2012 10:33-0500 Body height 172.72 cm Alyx Murillo RN Work Phone: [employer].; [employer]. 08-19-2012 10:33-0500 Body mass index (BMI) [Ratio] 20.22 kg/m2 Alyx Murillo RN Work Phone: [employer].; [employer]. 08-19-2012 10:33-0500 Body surface area Derived from formula 1.72 m2 Alyx Murillo RN Work Phone: [employer].; [employer]. 08-19-2012 10:33-0500 Body weight 60.33 kg Alyx Murillo RN Work Phone: [employer].; [employer]. 08-19-2012 10:33-0500 Diastolic blood pressure 76 mm[Hg] Alyx Murillo RN Work Phone: [employer].; [employer]. Comment on above: Patient Position: Sitting; Cuff Location : Left Arm; Cuff Size: Standard 08-19-2012 10:33-0500 Heart rate 73 /min Alyx Murillo RN Work Phone: [employer].; [employer]. Comment on above: Pattern: Regular 08-19-2012 10:33-0500 Systolic blood pressure 134 mm[Hg] Alyx Murillo RN Work Phone: [employer].; [employer]. Comment on above: Patient Position: Sitting; Cuff Location : Left Arm; Cuff Size: Standard 09-09-2010 13:47-0400 Body height 172.72 cm Alyx Murillo RN Work Phone: [employer].; [employer]. 09-09-2010 13:47-0400 Body mass index (BMI) [Ratio] 19.92 kg/m2 Alyx Murillo RN Work Phone: [employer].; [employer]. 09-09-2010 13:47-0400 Body surface area Derived from formula 1.71 m2 Alyx Murillo RN Work Phone: [employer].; [employer]. 09-09-2010 13:47-0400 Body weight 59.42 kg Alyx Murillo RN Work Phone: [employer].; [employer]. 09-09-2010 13:47-0400 Diastolic blood pressure 80 mm[Hg] Alyx Murillo RN Work Phone: [employer].; [employer]. Comment on above: Patient Position: Sitting; Cuff Location : Left Arm; Cuff Size: Standard 09-09-2010 13:47-0400 Heart rate 77 /min Alyx Murillo RN Work Phone: [employer].; [employer]. Comment on above: Pattern: Regular 09-09-2010 13:47-0400 Systolic blood pressure 130 mm[Hg] Alyx Murillo RN Work Phone: [employer].; [employer]. Comment on above: Patient Position: Sitting; Cuff Location : Left Arm; Cuff Size: Standard 08-23-2010 08:24-0500 Body weight 59.88 kg Alyx Murillo RN Work Phone: [employer].; [employer]. 08-23-2010 08:24-0500 Diastolic blood pressure 87 mm[Hg] Alyx Murillo RN Work Phone: [employer].; [employer]. Comment on above: Patient Position: Sitting; Cuff Location : Left Arm; Cuff Size: Standard 08-23-2010 08:24-0500 Heart rate 79 /min Alyx Murillo RN Work Phone: [employer].; [employer]. Comment on above: Pattern: Regular 08-23-2010 08:24-0500 Systolic blood pressure 135 mm[Hg] Alyx Murillo RN Work Phone: [employer].; [employer]. Comment on above: Patient Position: Sitting; Cuff Location : Left Arm; Cuff Size: Standard 04-15-2010 13:10-0400 Body weight 58.51 kg Alyx Murillo RN Work Phone: [employer].; [employer]. 04-15-2010 13:10-0400 Diastolic blood pressure 73 mm[Hg] Alyx Murillo RN Work Phone: [employer].; [employer]. Comment on above: Patient Position: Sitting; Cuff Location : Left Arm; Cuff Size: Standard 04-15-2010 13:0400 Heart rate 75 /min Alyx Murillo RN Work Phone: [employer].; [employer]. Comment on above: Pattern: Regular 04-15-2010 13:0400 Systolic blood pressure 142 mm[Hg] Alyx Murillo RN Work Phone: [employer]. Comment on above: Patient Position: Sitting; Cuff Location : Left Arm; Cuff Size: Standard Encounters Encounter Date Encounter Type Care Provider Facility Start: 03-16-2025 ambulatory Autumn Beltran lity:[facility] Start: 07-01-2024 End: 07-01-2024 ambulatory Kanchan Francois Facility:[facility] Start: 06-05-2024 End: 06-05-2024 Office outpatient visit 15 minutes Fabby Guzman PA-C Work Phone: [employer]. Start: 03-21-2024 End: 03-21-2024 ambulatory Fabby FERREIRA Facility:[facility] [place] Start: 03-21-2024 End: 03-21-2024 ambulatory Suzanne Chairez Facility:[facility] Start: 09-19-2022 End: 09-19-2022 Office outpatient visit 10 minutes Fabby Murphyer PA-C Work Phone: [employer]. Start: 08-22-2021 End: 08-22-2021 Patient encounter procedure Fabby Murphyer PA-C Work Phone: [employer]. Start: 10-14-2020 End: 10-14-[address] ROBERT WARD [facility] Start: 09-21-2020 End: 09-21-[address] ROBERT WARD [facility] Start: 08-25-2019 End: 08-25-2019 Orders Fabby Guzman PA-C Work Phone: [facility] Start: 08-18-2019 End: 08-18-2019 Office outpatient visit 15 minutes Fabby Guzman PA-C Work Phone: [employer]. Start: 07-23-2019 End: 07-23-2019 Office outpatient visit 15 minutes Fabby Guzman PA-C Work Phone: [facility] Start: 03-14-2019 End: 03-14-2019 Office outpatient visit 15 minutes Fabby Guzman PA-C Work Phone: [facility] Start: 04-26-2018 End: 04-26-2018 Office outpatient visit 15 minutes Fabby Guzman PA-C Work Phone: [facility] Start: 05-12-2017 End: 05-12-2017 Medication Fabby Guzman PA-C Work Phone: [employer]. Start: 04-23-2017 End: 04-23-2017 Office outpatient visit 15 minutes Fabby Guzman PA-C Work Phone: [facility] Start: 08-13-2014 End: 08-13-2014 Manual pelvic examination Alyx Murillo RN Work Phone: [facility]; [employer]. Start: 08-13-2014 End: 08-13-2014 Periodic preventive med est patient 40-64yrs Fabby Guzman PA-C Work Phone: [employer]. Start: 08-12-2014 End: 08-12-2014 Historical Summary Fabby Guzman PA-C Work Phone: [facility] Start: 06-15-2014 End: 06-15-2014 Orders Fabby Guzman PA-C Work Phone: [facility] Start: 08-19-2012 End: 08-19-2012 Patient encounter procedure Fabby Guzman PA-C Work Phone: [facility] Start: 11-18-2010 End: 11-18-2010 Laboratory examination ordered as part of a routine general medical examination Vidhya Vela Dick Work Phone: [facility] [employer]; [employer]. Start: 11-18-2010 End: 11-18-2010 Orders Fabby Guzman PA-C Work Phone: [facility] Start: 09-09-2010 End: 09-09-2010 Patient encounter procedure Fabby Guzman PA-C Work Phone: [facility] Start: 09-09-2010 End: 09-09-2010 Routine gynecological examination Alyx Murillo RN Work Phone: [employer]; [facility] Start: 09-08-2010 End: 09-08-2010 Historical Summary Fabby Guzman PA-C Work Phone: [facility] Start: 08-23-2010 End: 08-23-2010 Patient encounter procedure Fabby Guzman PA-C Work Phone: [facility] Start: 04-15-2010 End: 04-16-2010 Patient encounter procedure Fabby Guzman PA-C Work Phone: [facility] Procedures Date Procedure Procedure Detail Performing Clinician Start: 08-22-2021 End: 08-22-2021 Destruction premalignant lesion 1st Fabby Guzman PA-C Work Phone: Start: 07-23-2019 End: 07-28-2019 Ct abdomen & pelvis w/contrast material Fabby Guzman PA-C Work Phone: Comment on above: Hold patient and tad l results to Vikash Guzman ([phone] until 4pm and then [phone] after 4pm). Start: 04-23-2017 End: 04-23-2017 Chest x-ray Fabby Pablo Work Phone: Comment on above: Cough x 3 weeks Start: 04-23-2017 End: 2017 Ecg routine ecg w/least 12 lds i&r only Fabby Guzman PA-C Work Phone: Comment on above: Normal sinus rhythm; no ischemia. HERBIE also reviewed. Start: 07-10-2014 End: 07-10-2014 Screening mammography Harmony PERZE Comment on above: Normal. Start: 06-25-2014 End: 06-25-2014 Lipid panel results documented & reviewed Harmony Burgos LPN Comment on above: Abnormal. Start: 06-15-2014 End: 07-10-2014 Mammogram, screening Carina Stanley MD Work Phone: Start: 08-19-2012 End: 08-22-2012 Mammogram, both breasts Carina Stanley MD Work Phone: Comment on above: due for screening ma mmogram; having pain under right breast Start: 08-23-2010 End: 08-23-2010 Microscopic examination of cervical Papanicolaou smear Harmony Burgos LPN Comment on above: Normal. Lumpectomy of breast Fabby Guzman PA-C Work Phone: Comment on above: benign lump, 1985 Immunizations Immunization Date Immunization Notes Care Provider Fa cility 08-13-2014 tetanus toxoid, redu valerie diphtheria toxoid, and acellular pertussis vaccine, adsorbed Fabby Guzman PA-C Work Phone: [facility], [facility].; [facility]. Comment on above: Site: Deltoid (Right )VIS Given: * TDAP, Td (10/31/2012) Payers Date Payer Category Payer Self-pay 2024 Unknown [id number] 1965 Unknown [id number] 1965 Unknown [id number] Unknown [employer] Unknown [id number] Unknown [id number] Unknown [id number] [id number] Unknown [id number] Social History Date Type Detail Facility Alcohol Use: Alcohol Use: ; O ccasional alcohol use. [facility]; [facility] Caffeine Use Caffeine Use [employer]; [facility] Current Work/Study Status: Jay yann Work/Study Status: ; Full-time. [facility]; [facility] Tobacco Use: Tobacco Use: ; Never smoker. [facility]; [facility] Female [employer]; [facility] Work Phone: Full-time [employer]; [facility] Work Phone: Occasional alcohol use [facility] [employer]; [facility] Work Phone: Never smoked tobacco [facility]; [facility] Work Phone: Summary Purpose Family History No Family History Records Found Allergic Rhinitis Status:Active Comments:Fathe r. Brother. Arthritis Status:Active Comments:Mother. Asthma Status:Active Comments:Father. Heart disease Status:Active Comments:Father. Mother. Hypertension Status:Active Comments:Mother. Ovarian Cancer Status:Active Comments:Materna l Aunt. pancreatic cancer Status:Active Comments:fathe r-may have been gallbladder and/or liver rather than pancreas Allergic Rhinitis Status:Active Comments:Fathe r. Brother. Arthritis Status:Active Comments:Mother. Asthma Status:Active Comments:Father. Heart disease Status:Active Comments:Father. Mother. Hypertension Status:Active Comments:Mother. Ovarian Cancer Status:Active Comments:Materna l Aunt. pancreatic cancer Status:Active Comments:fathe r-may have been gallbladder and/or liver rather than pancreas Allergic Rhinitis Status:Active Comments:Fathe r. Brother. Arthritis Status:Active Comments:Mother. Asthma Status:Active Comments:Father. Heart disease Status:Active Comments:Father. Mother. Hypertension Status:Active Comments:Mother. Ovarian Cancer Status:Active Comments:Materna l Aunt. pancreatic cancer Status:Active Comments:fathe r-may have been gallbladder and/or liver rather than pancreas Allergic Rhinitis Status:Active Comments:Fathe r. Brother. Arthritis Status:Active Comments:Mother. Asthma Status:Active Comments:Father. Heart disease Status:Active Comments:Father. Mother. Hypertension Status:Active Comments:Mother. Ovarian Cancer Status:Active Comments:Materna l Aunt. pancreatic cancer Status:Active Comments:fathe r-may have been gallbladder and/or liver rather than pancreas Allergic Rhinitis Status:Active Comments:Fathe r. Brother. Arthritis Status:Active Comments:Mother. Asthma Status:Active Comments:Father. Heart disease Status:Active Comments:Father. Mother. Hypertension Status:Active Comments:Mother. Ovarian Cancer Status:Active Comments:Materna l Aunt. pancreatic cancer Status:Active Comments:fathe r-may have been gallbladder and/or liver rather than pancreas Allergic Rhinitis Status:Active Comments:Fathe r. Brother. Arthritis Status:Active Comments:Mother. Asthma Status:Active Comments:Father. Heart disease Status:Active Comments:Father. Mother. Hypertension Status:Active Comments:Mother. Ovarian Cancer Status:Active Comments:Materna l Aunt. pancreatic cancer Status:Active Comments:fathe r-may have been gallbladder and/or liver rather than pancreas Allergic Rhinitis Status:Active Comments:Fathe r. Brother. Arthritis Status:Active Comments:Mother. Asthma Status:Active Comments:Father. Heart disease Status:Active Comments:Father. Mother. Hypertension Status:Active Comments:Mother. Ovarian Cancer Status:Active Comments:Materna l Aunt. pancreatic cancer Status:Active Comments:fathe r-may have been gallbladder and/or liver rather than pancreas Advance Directives No Advanced Directives Records FoundNo Advanced Directives Records Found Additional Source Comments INFORMATION SOURCE (unrecogn ized section and content) DATE CREATED AUTHOR [facility]/21/2020 [facility] DATE CREATED AUTHOR AUTHORCurly MARTIN 03/13/2025 [facility] FOR RECORDS PERTAINING TO PATIENTS WHO ARE OR HAVE BEEN ENROLLED IN A CHEMICAL DEPENDENCY/SUBSTANCEABUSE PROGRAM, SOME INFORMATION MAY BE OMITTED. This clinical summary was aggregated from multiple sources. Caution should be exercised in using it in the provision of clinical care. This summary normalizes information from multiple sources, and as a consequence, information in this document may materially change the coding, format and clinical context of patient data. In addition, data may be omitted in some cases. CLINICAL DECISIONS SHOULD BE BASED ON THE PRIMARY CLINICAL RECORDS. [employer] [facility]. provides no warranty or guarantee of the accuracy or completeness of information in this document.
== END | disposition home or self-care (01) ==
LOC: OPBI 09:25
PROVIDERS: PCP Physician Assistant; Referring Provider Obstetrics & Gynecology; Visit Provider Obstetrics & Gynecology
DX: Z12.31 Encounter for screening mammogram for malignant neoplasm of breast (principal)
CPT/HCPCS: 77063; 77067

== ENCOUNTER → 2025-05-15 | Outpatient (CLI) | payer OTHER, SELFPAY ==
[2025-05-19 22:07] LABS: HPV APTIMA, High Risk Negative (Negative)
== END | disposition home or self-care (01) ==
LOC: LABSPEC 16:48
PROVIDERS: PCP Physician Assistant; Referring Provider Obstetrics & Gynecology; Visit Provider Obstetrics & Gynecology
DX: Z12.4 Encounter for screening for malignant neoplasm of cervix (principal); N87.0 Mild cervical dysplasia
CPT/HCPCS: 87624; 88175; G0145